=== PATIENT | male | born 1990 | race African-American/Black ===

== ENCOUNTER 2016-12-07 10:13 | Emergency (ER) | payer SELFPAY ==
[~2016-12-07] VITALS: Ht 185.4 cm; Wt 95.3 kg
[2016-12-07] MEDS ORDERED: NKM (10:24)
[2016-12-07 10:40] VITALS: BP 148/89
[2016-12-07] MEDS ORDERED: NEOSPORIN OINTM30 GM TP (10:50)
[2016-12-07] MEDS ORDERED: KEFLEX500 MG ORAL (10:50)
[2016-12-07] MEDS ORDERED: IBUPROFEN600 MG ORAL (10:50)
[2016-12-07] MEDS ORDERED: NYSTATIN15 GM TOPIC (11:18)
[2016-12-07 11:37] VITALS: BP 133/88
--- NOTE | 2016-12-07 13:59 | Diagnostic Imaging Report ---
Indications: Pain in left toes Technique: 3 views of the left toes, denies trauma Findings: Comparison: None. Second distal phalanx demonstrates approximately 50% bone width dorsal subluxation relative to middle phalanx. Surrounding soft tissues mildly swollen. No fracture, dislocation, lytic destruction, periosteal reaction, soft tissue gas or foreign body, or other acute changes are demonstrated. No additional deformity, alignment abnormality, arthritic change, soft tissue calcification, or other chronic changes are demonstrated. IMPRESSION: Dorsal subluxation of second distal interphalangeal joint with surrounding soft tissue swelling, may be acute and traumatic in nature, despite denial of, and clinical indications. Correlate clinically. Otherwise negative
--- NOTE | 2016-12-08 07:11 | Emergency Room Report ---
History of Present Illness General Chief Complaint: General Complaint Source: Patient Present Illness HPI Patient presents with several complaints Initial complaint was of a swelling and discomfort to the right ring finger Patient also complaining of a right large toe discomfort after contusion several days ago Patient also complained of irritation to the genital area With regards to his finger patient states that he has noticed some swelling over the past several days and now it appears that state, pain is 3/10 worse with touch denies any discharge denies any trauma With regards to his right large toe, patient reports that he had a fall about 7 days ago in [place] he has been walking on it however does feel comfortable with bending the large toe rates that pain is 3/10 With regards to his irritation Patient reports using K-Y jelly with his girlfriend, the next day he felt some increased irritation and erythema of the scrotal region, and the area has been pruritic in nature Denies any pain denies any discharge, Allergies: Coded Allergies: No Known Allergies (Unverified , 12/07/16) Patient History Past Medical History: see triage record Pertinent Family History: none Reviewed Nursing Documentation: PMH: Agreed, PSxH: Agreed Nursing Documentation-PMH Past Medical History: No Stated History Review of Systems All Other Systems: negative except mentioned in HPI Physical Exam Vital Signs Date Time Temp Pulse Resp B/P Pulse Ox O2 Delivery O2 Flow Rate FiO2 12/07/16 10:15 98.2 104 20 156/90 98 Room Air Sp02 EP Interpretation: reviewed, normal General Appearance: well appearing, no apparent distress Head: normocephalic, atraumatic Eyes: bilateral eye EOMI, bilateral eye PERRL ENT: hearing grossly normal, normal pharynx, TMs + canals normal, uvula midline Respiratory: lungs clear, normal breath sounds, no rhonchi, no respiratory distress, no retraction, no accessory muscle use Cardiovascular #1: regular rate, rhythm, no edema Gastrointestinal: non tender, soft, no mass Genitourinary: other - Fine mild erythematous hue dermatitis, just under the scrotal area and minimally in the bilateral inguinal region, appears to be contact in nature versus possible ana no pustules no blister formation , Musculoskeletal: back normal, other - Mild discomfort at the proximal large toe on the right side, no obvious ecchymosis or bruising. Right ring finger has a paronychia with mild erythema and mild swelling, sensory intact full range of motion intact Neurologic: alert, oriented x3 Skin: other - As noted above Lymphatic: no adenopathy Medical Decision Making Diagnostic Impression: Primary Impression: paranychia Additional Impressions: contusion contact dermatitis ER Course Patient's imaging of the right foot is negative Patient was given information and antibiotics regarding the paronychia on his finger No areas for incision at this time Patient was also provided medication for the possible ana infection And is otherwise stable for close outpatient followup Other X-Ray Diagnostic Results Other X-Ray Diagnostic Results : EP Interpretation: Yes Findings: no fractures, no dislocation, no soft tissue swelling Number of Views: 3 - right foot Last Vital Signs Date Time Temp Pulse Resp B/P Pulse Ox O2 Delivery O2 Flow Rate FiO2 12/07/16 11:37 98.0 90 16 133/88 100 Room Air Status: improved Disposition: HOME, SELF-CARE Condition: Improved Scripts Nystatin* (NYSTATIN*) 15 Gm Cream..g. 1 APPLIC TOPIC THREE TIMES A DAY for 7 Days, GM Prov: CHARLOTTE GROSS D.O. 12/07/16 Neomycin Ward/Bacitrac Zn/Poly (Neosporin Ointment) 28.3 Gm Oint...g. 5 GM TP BID for 7 Days, GM Prov: CHARLOTTE GROSS D.O. 12/07/16 Ibuprofen* (MOTRIN*) 600 Mg Tablet 600 MG ORAL Q8H Y for For Pain, #20 TAB 0 Refills Prov: CHARLOTTE GROSS D.O. 12/07/16 Cephalexin* (KEFLEX*) 500 Mg Capsule 500 MG ORAL Q6H, #28 CAP 0 Refills Prov: CHARLOTTE GROSS D.O. 12/07/16 Patient Instructions: Contusion, Contact Dermatitis, Paronychia, [id number] Additional Instructions: Patient is provided with the discharge instructions notified to follow up with primary doctor in the next 2-3 days otherwise return to the er with any worsening symptoms. CHARLOTTE GROSS D.O. Dec 08, 2016 07:11
== END 2016-12-07 11:37 | disposition home or self-care (01) ==
LOC: EMR 11:11
DX: L03.011 Cellulitis of right finger (principal); S90.111A Contusion of right great toe without damage to nail, initial encounter; W19.XXXA Unspecified fall, initial encounter; Y92.9 Unspecified place or not applicable; L25.9 Unspecified contact dermatitis, unspecified cause
CPT/HCPCS: 99283